=== PATIENT | male | born 1940 | race Caucasian/White ===

== ENCOUNTER → 2016-10-29 | Outpatient (CLI) | payer MEDICARE, OTHER ==
[~2016-10-29] MED LIST: ALEVE220 MG PO; ASPIRIN LO-DOSE81 MG PO; COZAAR50 MG PO; HYDROCHLOROTH12.5 MG PO; LEVAQUIN500 MG PO; LIPITOR40 MG PO; NORCO 5-325 MG1 TAB PO; TYLENOL EXTRA500 MG PO; TYLENOL/COD#31 TAB PO
== END | disposition disaster alternative care site (69) ==
LOC: GRAD 14:11
DX: C64.9 Malignant neoplasm of unspecified kidney, except renal pelvis (principal)

== ENCOUNTER → 2016-12-28 | Outpatient (CLI) | payer MEDICARE, OTHER | END | disposition disaster alternative care site (69) | LOC: LGSMG 13:56 | DX: J20.9 Acute bronchitis, unspecified (principal) ==

== ENCOUNTER → 2017-02-08 | Outpatient (CLI) | payer MEDICARE, OTHER | END | disposition disaster alternative care site (69) | LOC: GRAD 08:27 | DX: Z08 Encounter for follow-up examination after completed treatment for malignant neoplasm (principal); Z85.528 Personal history of other malignant neoplasm of kidney ==